=== PATIENT | male | born 1970 | race Caucasian/White ===

== ENCOUNTER 2023-07-04 08:22 | Outpatient (CLI) | payer OTHER, SELFPAY ==
--- NOTE | 2023-07-04 08:39 | XR_ITS ---
WS: [id number] Exam: XR hand LT [id number] Date/Time of Exam: 07/04/2023 8:39 AM Reason For Exam: L LITTLE FINGER FX No obvious fracture or dislocation noted. Articular relationships are intact. No radiopaque soft tiss ue foreign bodies are seen. IMPRESSION: 1. No acute fracture identified.
== END 2023-07-04 08:23 | disposition home or self-care (01) ==
PROVIDERS: Visit Provider Chiropractor
DX: S62.607A Fracture of unspecified phalanx of left little finger, initial encounter for closed fracture (principal); X58.XXXA Exposure to other specified factors, initial encounter
CPT/HCPCS: 73120